=== PATIENT | male | born 1945 | race Caucasian/White ===

== ENCOUNTER 2019-07-03 08:37 | Observation (INO) | payer MEDICARE, SELFPAY ==
[2019-07-03] VITALS (9 sets, daily range): BP systolic 103–138; BP diastolic 55–95; PULSE 56–99; RESP 15–18; TEMP 36.4–36.7; O2SAT 95–100; BMI 23.5
--- NOTE | 2019-07-03 08:53 | ED_ITS ---
Entered by Claire Velasquez, acting as scribe for Alen Salazar DO HPI - Chest Pain General: Chief Complaint: Chest Pain Stated Complaint: Chest pain Time Seen by Provider: 07/03/19 08:49 Source: patient, family and RN notes reviewed Mode of arrival: ambulatory Limitations: no limitations History of Present Illness: HPI narrative: 73 yo male presents to ED with complaints of chest pain and abdominal pain. The patient said he has a sharp burning pain in chest and a ache in his abdomen. He said he is nauseated when he sits up and stands up because he gets so dizzy. He confirms shortness of breath. He denies vomiting. MD complaint: chest pain Onset (ago): hour(s) (this morning) Timing of current episode: constant Prior episodes: No Onset: during rest Pain location: substernal Severity: moderate Quality: aching and sharp Relieving factors: nothing Exacerbating factors: movement Associated symptoms: Reports abdominal pain, dyspnea and nausea; Deny fever(s), palpitations or syncope Treatment prior to arrival: none Risk Factors: Coronary artery disease risk factors: hypertension Thoracic aortic dissection risk factors: none Review of Systems Const: Denies: fever, chills, body aches, fatigue, malaise or night sweats Eyes: Denies: change in vision or blurry vision ENMT: Denies: throat pain, oral sores/lesions, dental pain, nasal discharge or nasal congestion Card: Denies: palpitations, irregular heart rhythm, edema, syncope, shortness of breath on exertion, shortness of breath when lying down or leg pain with exertion Resp: Reports: shortness of breath GI: Reports: abdominal pain and nausea : Denies: flank pain, difficulty urinating, painful urination, urinary frequency, urinary urgency, urinary incontinence or blood in urine Musc: Denies: neck pain, back pain, extremity pain, extremity swelling, joint pain or joint swelling Skin/Breast: Denies: rash, itching or redness Neuro: Reports: vertigo; Denies: headache, numbness in extremities, weakness in extremities, changes in sensation, lack of coordination, difficulty walking, frequent falls, dizziness or confusion Psych: Denies: anxiety, depression, loss of interest, visual hallucinations, auditory hallucinations, suicidal ideation or homicidal ideation Endo: Denies: excessive urination, excessive thirst, tired all the time or cold intolerance Dimas/Lymph: Denies: easy bruising, easy bleeding, petechiae, enlarged lymph nodes or tender lymph nodes PFSH ED PFSH: Statuses (acute, chronic, etc) shown below reflect problem list status as previously entered and may not be historically accurate Medical History Hypertension (Chronic) Hypothyroidism (Chronic) Surgical History H/O inguinal hernia repair (Acute) H/O shoulder surgery (Acute) History of appendectomy (Acute) History of cholecystectomy (Acute) Family History Unknown Old age Reports many family members of old age. 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 Physical Exam Const: COMMON NORMALS: no apparent distress GENERAL APPEARANCE: cooperative and comfortable ORIENTATION/CONSCIOUSNESS: Yes awake, Yes oriented to person, Yes oriented to place and Yes oriented to time HENMT: COMMON NORMALS: normocephalic, head/scalp atraumatic, hearing grossly normal bilaterally, external ears normal, EAC's normal, TM's normal bilaterally, nasal mucous membranes and turbinates normal, moist oral mucous membranes and oropharynx normal HEAD & SCALP: normocephalic and atraumatic NOSE: nasal mucous membranes and turbinates normal EXTERNAL EAR: Yes external ears normal EXTERNAL AUDITORY CANAL: EAC's normal TYMPANIC MEMBRANE: TM's normal bilaterally Eye: COMMON NORMALS: PERRL, EOMs intact bilaterally, conjunctivae normal and no scleral icterus CONJUNCTIVA: Yes conjunctivae normal PUPIL: Yes PERRL Neck/C-Spine: COMMON NORMALS: full ROM, no lymphadenopathy, supple and no JVD Lymph: LYMPHATIC: no lymphadenopathy noted and no lymphedema noted Resp: COMMON NORMALS: normal respiratory effort, no retractions, no use of accessory muscles and clear to auscultation bilaterally AUSCULTATION: clear to auscultation bilaterally Cardio: COMMON NORMALS: no JVD, regular rate, regular rhythm and no murmurs RATE: regular rate RHYTHM: regular rhythm GI: COMMON NORMALS: soft to palpation and no hepatosplenomegaly AUSCULTATION: Yes normoactive bowel sounds PALPATION: Yes soft, No tender, No guarding and Yes no hepatosplenomegaly Extremity: COMMON NORMALS: normal to inspection, normal capillary refill, no clubbing, cyanosis or edema, no calf tenderness and no pedal edema Neuro: SENSORIUM/ORIENTATION: Yes oriented to person, Yes oriented to place and Yes oriented to time Skin: COMMON NORMALS: no rashes or lesions noted GENERAL SKIN EXAM: no rashes or lesions noted Course ED course: Patient sits up he gets extremely dizzy can even hold his balance gets very nauseous as well concern he may have a posterior circulation stenosis CTA of the head ordered we will do further work-up on an inpatient basis placed on observation Vital Signs: Vital signs: Vital Signs Temperature 97.8 F 07/04/19 15:25 Pulse Rate 62 07/04/19 15:25 Respiratory Rate 16 07/04/19 15:25 Blood Pressure 124/72 07/04/19 15:25 Pulse Oximetry 96 07/04/19 15:25 MDM - Chest Pain Lab Data: Labs: Lab Results 07/03/19 07/03/19 07/03/19 Range/Units 08:54 08:54 08:54 WBC 5.2 (4.0-10.0) 10^3/ uL RBC 4.15 (4.1-5.3) 10^6/u L Hgb 14.0 (11.7-16.6) g/dL Hct 40.2 L (42.0-52.0) % MCV 96.9 H (80-94) fL MCH 33.7 (28.0-34.0) pg MCHC 34.8 (30.0-36.0) g/dL RDW 12.7 (12.1-15.1) % Plt Count 192 (130-400) 10^3/c mm MPV 9.8 (7.4-10.4) fL Neut % (Auto) 72.0 % Lymph % (Auto) 17.3 % [place] % (Auto) 9.1 % Eos % (Auto) 1.0 % Baso % (Auto) 0.4 % Neut # (Auto) 3.7 (1.8-7.7) 10^3/u L Lymph # (Auto) 0.9 (0.8-4.8) 10^3/u L [place] # (Auto) 0.5 (0.2-0.9) 10^3/u L Eos # (Auto) 0.1 (0.0-0.8) 10^3/u L Baso # (Auto) 0.0 (0.0-0.1) 10^3/u L Nucleated RBC % (a uto) 0 % Nucleated RBCs # 0.0 /100WBC ESR (0-10) mm/hr Sodium 137 (136-145) mmol/L Potassium 4.1 (3.5-5.1) mmol/L Chloride 105 (98-107) mmol/L Carbon Dioxide 22 (22-29) mmol/L Anion Gap 14.1 (5-19) BUN 24 H (8-23) mg/dL Creatinine 1.2 (0.7-1.2) mg/dL Glucose 120 H (65-115) mg/dL Estimat Average Gl ucose Hemoglobin A1c (4.0-6.0) % Calcium 9.5 (8.5-10.5) mg/dL Total Bilirubin 0.6 (0.15-1.2) mg/dL AST 19 (0-40) U/L ALT 16 (0-41) U/L Alkaline Phosphata se 96 (40-130) IU/L Troponin T Baselin e 13 (0-15) ng/mL Troponin T 120 Min [place] (0-15) ng/mL Delta Troponin T (0-10) ABS# C-Reactive Protein (0.0-4.9) mg/L Total Protein 6.8 (6.6-8.7) g/dL Albumin 4.2 (3.5-5.2) g/dL Globulin 2.6 (1.3-4.6) g/dL Triglycerides (0-150) mg/dL Cholesterol (0-200) mg/dL LDL Cholesterol, C alc (50-129) mg/dL HDL Cholesterol (60-100) mg/dL LDL/HDL Ratio (0.00-3.22) RATI O Cholesterol/HDL Ra winifred (1.0-5.00) mg/dL Lipase 16 (13-60) U/L Urine Color (Yellow) Urine Appearance (CLEAR) Urine pH (5-7) Ur Specific Gravit y (1.005-1.030) Urine Protein (Negative) Urine Glucose (UA) (Normal) Urine Ketones (Negative) Urine Occult Blood (Negative) Urine Nitrate (Negative) Urine Bilirubin (NEGATIVE) Urine Urobilinogen (Negative) mg/dL Ur Leukocyte Kelly ase (Negative) Influenza Type A A g (Negative) POC Influenza B Ag (Negative) 07/03/19 07/03/19 07/03/19 Range/Units 08:54 08:54 08:54 WBC (4.0-10.0) 10^3/ uL RBC (4.1-5.3) 10^6/u L Hgb (11.7-16.6) g/dL Hct (42.0-52.0) % MCV (80-94) fL MCH (28.0-34.0) pg MCHC (30.0-36.0) g/dL RDW (12.1-15.1) % Plt Count (130-400) 10^3/c mm MPV (7.4-10.4) fL Neut % (Auto) % Lymph % (Auto) % [place] % (Auto) % Eos % (Auto) % Baso % (Auto) % Neut # (Auto) (1.8-7.7) 10^3/u L Lymph # (Auto) (0.8-4.8) 10^3/u L [place] # (Auto) (0.2-0.9) 10^3/u L Eos # (Auto) (0.0-0.8) 10^3/u L Baso # (Auto) (0.0-0.1) 10^3/u L Nucleated RBC % (a uto) % Nucleated RBCs # /100WBC ESR 6 (0-10) mm/hr Sodium (136-145) mmol/L Potassium (3.5-5.1) mmol/L Chloride (98-107) mmol/L Carbon Dioxide (22-29) mmol/L Anion Gap (5-19) BUN (8-23) mg/dL Creatinine (0.7-1.2) mg/dL Glucose (65-115) mg/dL Estimat Average Gl ucose 114 Hemoglobin A1c 5.6 (4.0-6.0) % Calcium (8.5-10.5) mg/dL Total Bilirubin (0.15-1.2) mg/dL AST (0-40) U/L ALT (0-41) U/L Alkaline Phosphata se (40-130) IU/L Troponin T Baselin e (0-15) ng/mL Troponin T 120 Min [place] (0-15) ng/mL Delta Troponin T (0-10) ABS# C-Reactive Protein 0.3 (0.0-4.9) mg/L Total Protein (6.6-8.7) g/dL Albumin (3.5-5.2) g/dL Globulin (1.3-4.6) g/dL Triglycerides (0-150) mg/dL Cholesterol (0-200) mg/dL LDL Cholesterol, C alc (50-129) mg/dL HDL Cholesterol (60-100) mg/dL LDL/HDL Ratio (0.00-3.22) RATI O Cholesterol/HDL Ra winifred (1.0-5.00) mg/dL Lipase (13-60) U/L Urine Color (Yellow) Urine Appearance (CLEAR) Urine pH (5-7) Ur Specific Gravit y (1.005-1.030) Urine Protein (Negative) Urine Glucose (UA) (Normal) Urine Ketones (Negative) Urine Occult Blood (Negative) Urine Nitrate (Negative) Urine Bilirubin (NEGATIVE) Urine Urobilinogen (Negative) mg/dL Ur Leukocyte Kelly ase (Negative) Influenza Type A A g (Negative) POC Influenza B Ag (Negative) 07/03/19 07/03/19 07/03/19 Range/Units 08:54 09:26 09:40 WBC (4.0-10.0) 10^3/ uL RBC (4.1-5.3) 10^6/u L Hgb (11.7-16.6) g/dL Hct (42.0-52.0) % MCV (80-94) fL MCH (28.0-34.0) pg MCHC (30.0-36.0) g/dL RDW (12.1-15.1) % Plt Count (130-400) 10^3/c mm MPV (7.4-10.4) fL Neut % (Auto) % Lymph % (Auto) % [place] % (Auto) % Eos % (Auto) % Baso % (Auto) % Neut # (Auto) (1.8-7.7) 10^3/u L Lymph # (Auto) (0.8-4.8) 10^3/u L [place] # (Auto) (0.2-0.9) 10^3/u L Eos # (Auto) (0.0-0.8) 10^3/u L Baso # (Auto) (0.0-0.1) 10^3/u L Nucleated RBC % (a uto) % Nucleated RBCs # /100WBC ESR (0-10) mm/hr Sodium (136-145) mmol/L Potassium (3.5-5.1) mmol/L Chloride (98-107) mmol/L Carbon Dioxide (22-29) mmol/L Anion Gap (5-19) BUN (8-23) mg/dL Creatinine (0.7-1.2) mg/dL Glucose (65-115) mg/dL Estimat Average Gl ucose Hemoglobin A1c (4.0-6.0) % Calcium (8.5-10.5) mg/dL Total Bilirubin (0.15-1.2) mg/dL AST (0-40) U/L ALT (0-41) U/L Alkaline Phosphata se (40-130) IU/L Troponin T Baselin e (0-15) ng/mL Troponin T 120 Min [place] (0-15) ng/mL Delta Troponin T (0-10) ABS# C-Reactive Protein (0.0-4.9) mg/L Total Protein (6.6-8.7) g/dL Albumin (3.5-5.2) g/dL Globulin (1.3-4.6) g/dL Triglycerides 41 (0-150) mg/dL Cholesterol 119 (0-200) mg/dL LDL Cholesterol, C alc 65 (50-129) mg/dL HDL Cholesterol 46 L (60-100) mg/dL LDL/HDL Ratio 1.41 (0.00-3.22) RATI O Cholesterol/HDL Ra winifred 2.59 (1.0-5.00) mg/dL Lipase (13-60) U/L Urine Color Yellow (Yellow) Urine Appearance Clear (CLEAR) Urine pH 8.0 H (5-7) Ur Specific Gravit y 1.015 (1.005-1.030) Urine Protein Neg (Negative) Urine Glucose (UA) Norm (Normal) Urine Ketones 1+ H (Negative) Urine Occult Blood Neg (Negative) Urine Nitrate Negative (Negative) Urine Bilirubin Neg (NEGATIVE) Urine Urobilinogen Norm (Negative) mg/dL Ur Leukocyte Kelly ase Negative (Negative) Influenza Type A A g Negative (Negative) POC Influenza B Ag Negative (Negative) 07/03/19 Range/Units 10:52 WBC (4.0-10.0) 10^3/ uL RBC (4.1-5.3) 10^6/u L Hgb (11.7-16.6) g/dL Hct (42.0-52.0) % MCV (80-94) fL MCH (28.0-34.0) pg MCHC (30.0-36.0) g/dL RDW (12.1-15.1) % Plt Count (130-400) 10^3/c mm MPV (7.4-10.4) fL Neut % (Auto) % Lymph % (Auto) % [place] % (Auto) % Eos % (Auto) % Baso % (Auto) % Neut # (Auto) (1.8-7.7) 10^3/u L Lymph # (Auto) (0.8-4.8) 10^3/u L [place] # (Auto) (0.2-0.9) 10^3/u L Eos # (Auto) (0.0-0.8) 10^3/u L Baso # (Auto) (0.0-0.1) 10^3/u L Nucleated RBC % (a uto) % Nucleated RBCs # /100WBC ESR (0-10) mm/hr Sodium (136-145) mmol/L Potassium (3.5-5.1) mmol/L Chloride (98-107) mmol/L Carbon Dioxide (22-29) mmol/L Anion Gap (5-19) BUN (8-23) mg/dL Creatinine (0.7-1.2) mg/dL Glucose (65-115) mg/dL Estimat Average Gl ucose Hemoglobin A1c (4.0-6.0) % Calcium (8.5-10.5) mg/dL Total Bilirubin (0.15-1.2) mg/dL AST (0-40) U/L ALT (0-41) U/L Alkaline Phosphata se (40-130) IU/L Troponin T Baselin e (0-15) ng/mL Troponin T 120 Min [place] 12.28 (0-15) ng/mL Delta Troponin T -0.72 L (0-10) ABS# C-Reactive Protein (0.0-4.9) mg/L Total Protein (6.6-8.7) g/dL Albumin (3.5-5.2) g/dL Globulin (1.3-4.6) g/dL Triglycerides (0-150) mg/dL Cholesterol (0-200) mg/dL LDL Cholesterol, C alc (50-129) mg/dL HDL Cholesterol (60-100) mg/dL LDL/HDL Ratio (0.00-3.22) RATI O Cholesterol/HDL Ra win[place] (1.0-5.00) mg/dL Lipase (13-60) U/L Urine Color (Yellow) Urine Appearance (CLEAR) Urine pH (5-7) Ur Specific Gravit y (1.005-1.030) Urine Protein (Negative) Urine Glucose (UA) (Normal) Urine Ketones (Negative) Urine Occult Blood (Negative) Urine Nitrate (Negative) Urine Bilirubin (NEGATIVE) Urine Urobilinogen (Negative) mg/dL Ur Leukocyte Kelly ase (Negative) Influenza Type A A g (Negative) POC Influenza B Ag (Negative) Imaging Data^: CXR: Radiologist's impression: [place] [address] XRay Report Signed Patient: Po Sánchez #: [id number] : 6Acct#:[id number] Age/Sex: 73 / MADM Date: 07/03/19 Loc: ERRoom/Bed: Attending Dr: Ordering Provider/Ordering MD: Alen Salazar DO Date of Service: 07/03/19 Procedure(s): XR chest 1V portable [id number] Accession Number(s): [id number] Report Number: [id number] WS: [id number] PORTABLE CHEST HISTORY: chest pain COMPARISON: 09/08/2012 Lungs are clear and well expanded. No pleural effusion or pneumothorax. Cardiac size: Normal. Mediastinum/Aorta: Normal mediastinum. No osseous abnormality seen. XR/XR chest 1V portable [id number] IMPRESSION: Unremarkable portable chest. Dictated By:Richelle Luis DO Signed By:Richelle Luis DOSigned Date/Time:07/03/19 1000 DD/ Other CT: Radiologist's impression: [facility] [address] [place] [address] CT Scan Report Signed Patient: Po Sánchez #: [id number] : 6Acct#:[id number] Age/Sex: 73 / MADM Date: 07/03/19 Loc: [facility]/Bed: [facility] [place] Attending Dr: Scooter Funes MD Ordering Provider/Ordering MD: Alen Salazar DO Date of Service: 07/03/19 Procedure(s): CT angio headneck* [id number] Accession Number(s): [id number] Report Number: [id number] PROCEDURE INFORMATION: Exam: CT Angiography Head With Contrast Exam date and time: 07/03/2019 12:29 PM Age: 73 years old Clinical indication: Dizziness and giddiness; Patient HX: Onset of dizziness with vomiting today. ; Additional info: Tia/cva TECHNIQUE: Imaging protocol: Computed tomography angiography of the head with intravenous contrast. 3D rendering: MIP and/or 3D reconstructed images were created by the technologist. Total DLP: 2269.87 mGy-cm Radiation optimization: All CT scans at this facility use at least one of these dose optimization techniques: automated exposure control; mA and/or kV adjustment per patient size (includes targeted exams where dose is matched to clinical indication); or iterative reconstruction. Contrast material: VISI 320; Contrast volume: 95 ml; Contrast route: 20G; COMPARISON: CT head wo con* [id number] 07/03/2019 12:52 PM FINDINGS: Right internal carotid artery: Unremarkable. Intracranial segment is patent with no significant stenosis. No aneurysm. 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 Right middle cerebral artery: Unremarkable. No occlusion or significant stenosis. No aneurysm. Right posterior cerebral artery: Unremarkable. No occlusion or significant stenosis. No aneurysm. Right vertebral artery: Unremarkable. No occlusion or significant stenosis. No aneurysm. Left internal carotid artery: Unremarkable. Intracranial segment is patent with no significant stenosis. No aneurysm. Left anterior cerebral artery: Unremarkable. No occlusion or significant stenosis. No aneurysm. Left middle cerebral artery: Unremarkable. No occlusion or significant stenosis. No aneurysm. Left posterior cerebral artery: Unremarkable. No occlusion or significant stenosis. No aneurysm. Left vertebral artery: Unremarkable. No occlusion or significant stenosis. No aneurysm. Basilar artery: Unremarkable. No occlusion or significant stenosis. No aneurysm. IMPRESSION: No acute abnormality. PROCEDURE INFORMATION: Exam: CT Angiography Neck With Contrast Exam date and time: 07/03/2019 12:29 PM Age: 73 years old Clinical indication: Dizziness and giddiness; Patient HX: Onset of dizziness with vomiting today. ; Additional info: Tia/cva TECHNIQUE: Imaging protocol: Computed tomography angiography of the neck with intravenous contrast. 3D rendering: MIP and/or 3D reconstructed images were created by the technologist. Total DLP: 2269.87 mGy-cm Radiation optimization: All CT scans at this facility use at least one of these dose optimization techniques: automated exposure control; mA and/or kV adjustment per patient size (includes targeted exams where dose is matched to clinical indication); or iterative reconstruction. Contrast material: VISI 320; Contrast volume: 95 ml; Contrast route: 20G; COMPARISON: CT head wo con* [id number] 07/03/2019 12:52 PM FINDINGS: VASCULATURE: Right common carotid artery: Unremarkable. No stenosis. No dissection or occlusion. Right internal carotid artery: Unremarkable extracranial segment. No stenosis. No dissection or occlusion. Right external carotid artery: Unremarkable. No occlusion or stenosis of the origin. Right vertebral artery: Unremarkable. No stenosis. No dissection or occlusion. Left common carotid artery: Unremarkable. No stenosis. No dissection or occlusion. Left internal carotid artery: Unremarkable extracranial segment. No stenosis. No dissection or occlusion. Left external carotid artery: Unremarkable. No occlusion or stenosis of the origin. Left vertebral artery: Unremarkable. No stenosis. No dissection or occlusion. NECK: Bones/joints: Moderate degenerative changes of the cervical spine are present. Soft tissues: Normal. No significant soft tissue swelling. CT/CT angio headneck* [id number] IMPRESSION: No acute abnormality. COMMENT: Reference per NASCET criteria for degree of stenosis: Mild: less than 50% stenosis. Moderate: 50-69% stenosis. Severe: 70-94% stenosis. Near occlusion: 95-99% stenosis. Radiation Dose CTDIVOL = (mGy): DLP = 2269.87~2269.87 (mGy-cm) Dictated By:Hang Wallis MD Signed By:Hang Wallis MDSigned Date/Time:07/03/19 1333 DD/ CT Head: Radiologist's impression: [place] [address] CT Scan Report Signed Patient: Po Sánchez #: [id number] : 6Acct#:[id number] Age/Sex: 73 / MADM Date: 07/03/19 Loc: ERRoom/Bed: Attending Dr: Ordering Provider/Ordering MD: Alen Salazar DO Date of Service: 07/03/19 Procedure(s): CT head wo con* [id number] Accession Number(s): [id number] Report Number: [id number] PROCEDURE INFORMATION: Exam: CT Head Without Contrast Exam date and time: 07/03/2019 12:29 PM Age: 73 years old Clinical indication: Patient HX: Onset of dizziness with vomiting today. TECHNIQUE: Imaging protocol: Computed tomography of the head without contrast. Total DLP: 856.99 mGy-cm Radiation optimization: All CT scans at this facility use at least one of these dose optimization techniques: automated exposure control; mA and/or kV adjustment per patient size (includes targeted exams where dose is matched to clinical indication); or iterative reconstruction. COMPARISON: No relevant prior studies available. FINDINGS: Brain: There is no acute intracranial hemorrhage, cerebral edema, or midline shift. Chronic microvascular ischemic changes are seen in the periventricular white matter. Age-related cerebral and cerebellar volume loss is present. Ventricles: No hydrocephalus. Bones/joints: No acute fracture. Sinuses: There is no acute sinusitis. Mastoid air cells: The mastoid air cells are clear. Orbits: The included orbital structures are unremarkable. Soft tissues: Unremarkable. CT/CT head wo con* [id number] IMPRESSION: 1. No acute intracranial abnormality. 2. Atrophy and chronic deep white matter ischemic change. 3. [place] Stroke Program Early CT Score (ASPECTS) = 10 Radiation Dose CTDIVOL = (mGy): DLP = 856.99 (mGy-cm) Dictated By:Hang Wallis MD Signed By:Hang Wallis MDSigned Date/Time:07/03/19 1315 DD/ Discharge Plan Discharge Patient Disposition: Admitted As Inpatient Admit Provider: Scooter Funes Clinical Impression: TIA (transient ischemic attack), Hypothyroidism, Hypertension Condition: Stable Discharge Orders: Discharge Order (Routine); Ordered 07/04/19 Ordered By: Scooter Funes Referrals: Melissa Lowery MD [Physician] - 07/17/19 2:30 pm (As needed) Cipriano Barrera MD [Primary Care Provider] - 4-7 days (PLEASE CALL FOR APPOINTMENT WITH DR BARRERA) Discharge Diet: Cardiac Discharge Activity: Increase activity as tolerated Patient Instructions: Benign Positional Vertigo, Meclizine (By mouth), Atorvastatin (By mouth), Vertigo (DC) Additional Instructions: Avoid work overhead, or places where repositioning her head may trigger vertigo until symptoms are consistently resolved. Avoid working in elevated locations to avoid risk of falling in case you suffer an episode of vertigo. Interventions: ED Discharge Assessment Last Done: 07/03/19 13:41 Discharge Date/Time: 07/03/19 14:00 Coding Level of Care Code ED Speech Therapy Assistant for Chg Fwd Exam Problem Focused The documentation recorded by the Ron kilgore Valerie R, accurately reflects the service I personally performed and the decisions made by Martin zamora Curtis L, DO Jul 03, 2019 08:37
--- NOTE | 2019-07-03 08:58 | ECG_ITS ---
Measurements Intervals [place] Rate: 54 P: 62 MT: 197 QRS: 46 QRSD: 88 T: 66 QT: 419 QTc: 398 SINUS BRADYCARDIA No previous ECG available for comparison Electronically Signed On 07-03-2019 16:31:36 LAST PULLER by Rodrick Rasheed M.D. [email or web address]
[2019-07-03 09:07] LABS: Basophils % 0.4 %; Eosinophils # 0.1 10^3/uL (0.0-0.8); Hematocrit 40.2 % (42.0-52.0); Lymphocytes # 0.9 10^3/uL (0.8-4.8); Lymphocytes % 17.3 %; Mean Corpuscular HGB Conc 34.8 g/dL (30.0-36.0); Mean Corpuscular Hemoglobin 33.7 pg (28.0-34.0); Mean Corpuscular Volume 96.9 fL (80-94); Mean Platelet Volume 9.8 fL (7.4-10.4); Monocytes # 0.5 10^3/uL (0.2-0.9); Monocytes % 9.1 %; Neutrophils # 3.7 10^3/uL (1.8-7.7); Nucleated Red Blood Cells % 0 %; Platelet Count 192 10^3/cmm (130-400); Red Blood Count 4.15 10^6/uL (4.1-5.3); Red Cell Distribution Width 12.7 % (12.1-15.1); White Blood Count 5.2 10^3/uL (4.0-10.0)
--- NOTE | 2019-07-03 09:13 | XR_ITS ---
WS: [id number] PORTABLE CHEST HISTORY: chest pain COMPARISON: 09/08/2012 Lungs are clear and well expanded. No pleural effusion or pneumothorax. Cardiac size: Normal. Mediastinum/Aorta: Normal mediastinum. No osseous abnormality seen. XR/XR chest 1V portable [id number] IMPRESSION: Unremarkable portable chest.
[2019-07-03 09:16] LABS: Alanine Aminotransferase 16 U/L (0-41); Albumin Level 4.2 g/dL (3.5-5.2); Alkaline Phosphatase 96 IU/L (40-130); Anion Gap 14.1 (5-19); Aspartate Amino Transferase 19 U/L (0-40); Blood Urea Nitrogen 24 mg/dL (8-23); Calcium 9.5 mg/dL (8.5-10.5); Carbon Dioxide 22 mmol/L (22-29); Chloride 105 mmol/L (98-107); Globulin 2.6 g/dL (1.3-4.6); Glucose 120 mg/dL (65-115); Lipase 16 U/L (13-60); Potassium 4.1 mmol/L (3.5-5.1); Sodium 137 mmol/L (136-145); Total Bilirubin 0.6 mg/dL (0.15-1.2); Total Protein 6.8 g/dL (6.6-8.7)
[2019-07-03] MEDS: ondansetron 2 mg/ML SDV 2 mL 4 MG IVP ×2 (09:22→15:01)
[2019-07-03] MEDS: sodium chloride 0.9% 1,000 ML 999 ML IV ×2 (09:22→12:02)
--- NOTE | 2019-07-03 09:26 | PC.NURSE ---
portable xray at bedside
[2019-07-03 09:49] LABS: Add Urine Microscopic? NO
[2019-07-03 09:55] LABS: Influenza A by IFA Negative (Negative); Influenza B by IFA Negative (Negative)
[2019-07-03 09:57] LABS: Bilirubin Urine Neg (NEGATIVE); Blood Urine Neg (Negative); Glucose Urine UA Norm (Normal); Ketones Urine 1+ (Negative); Leukocyte Esterase Urine Negative (Negative); Nitrate Urine Negative (Negative); Protein Urine Neg (Negative); Specific Gravity, Urine 1.015 (1.005-1.030); Urine Appearance Clear (CLEAR); Urine Color Yellow (Yellow); Urobilinogen Urine Norm (Negative)
--- NOTE | 2019-07-03 09:59 | ECG_ITS ---
Measurements Intervals [place] Rate: 53 P: 63 NE: 205 QRS: 47 QRSD: 85 T: 55 QT: 433 QTc: 408 SINUS BRADYCARDIA No previous ECG available for comparison Electronically Signed On 07-03-2019 16:32:17 CLERICAL SUPPORT SPECIALIST by Rodrick Rasheed M.D. [email or web address]
--- NOTE | 2019-07-03 10:14 | PM.CONSULT ---
Providers/Reason For Consult Consulting Physican/Specialty*: Indigo Reason for Consult*: Vertigo and arm weakness Attending Physician: Scooter Funes Primary Care Provider: Cipriano Mehta MD History of Present Illness History of Present Illness Consultation provided 07/03/2019 at [id number] hrs. 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 He came to the emergency department complaining of chest pain and abdominal pain and nausea. After some discussion in triage it became apparent that his main concern was vertigo. He was severely nauseated and could not move without triggering severe vertigo. He was evaluated by Dr. Funes, and during neurologic exam he was not moving his upper extremities against gravity and appeared profoundly weak. During my exam the patient is complaining of severe vertigo and he is reluctant to move about in the bed. He is severely nauseated when he turns his head to the right or the left. He feels unsteady when he walks and has been up to the bathroom but he was severely vertiginous.. He denies weakness in his limbs usually. He had not noticed weakness in his limbs today. His vertigo is better if he holds absolutely still. Yesterday he was complaining of intense pain in the back of his neck on the right side. He denied diplopia. No visual loss. He has a long history of high-pitched tinnitus which she describes as pulsatile. No hearing loss. He told Dr. Funes that when he lifted his arms it increase the pain in the back of his neck. Review of Systems General: Reports: 10 or more systems reviewed and unremarkable except in HPI and below Const: Reports: fatigue; Denies: fever or chills Eyes: Reports: blurry vision; Denies: change in vision, photophobia or other (No diplopia) ENMT: Denies: painful swallowing Card: Reports: chest pain; Denies: palpitations, irregular heart rhythm, edema, syncope or pre-syncope Resp: Denies: shortness of breath GI: Reports: nausea; Denies: abdominal pain, vomiting, difficulty swallowing or change in bowel habits : Denies: flank pain or difficulty urinating Musc: Reports: neck pain Neuro: Reports: weakness in extremities, lack of coordination, difficulty walking and vertigo; Denies: headache, numbness in extremities, changes in sensation, confusion or slurred speech Psych: Reports: anxiety Endo: Denies: excessive urination Dimas/Lymph: Denies: easy bruising Meds/Allergies Home Medications and Allergies Home Medications Medication Instructions Recorded Confirmed Type aspirin [Aspir-81] 81 mg PO DAILY 07/03/19 07/03/19 History levothyroxine 50 mcg PO DAILY 07/03/19 07/03/19 History naproxen sodium [Aleve] 440 mg PO DAILY PRN 07/03/19 07/03/19 History Allergies Allergy/AdvReac Type Severity Reaction Status Date / Time gluten Allergy Unknown Unknown Verified 07/03/19 09:19 Current Medications Current Medications Generic Name Dose Route Start Last Admin Trade Name Freq PRN Reason Stop Dose Admin Aspirin 162 mg 07/03/19 15:47 07/04/19 09:10 Aspirin Chewable PO 162 mg DAILY DEE DEE Administration Heparin Sodium (Beef Lung) 5,000 unit 07/03/19 15:47 07/04/19 09:11 Heparin SUBCUT 5,000 unit Q8H DEE DEE Administration Potassium Chloride/Sodium Chloride 20 meq in 1,000 mls @ 125 mls/hr 07/03/19 12:00 07/03/19 20:01 Sodium Chlor 0.9% + Kcl 20 Meq IV 125 mls/hr .Q8H DEE DEE Administration Sodium Chloride 1,000 mls @ 100 mls/hr 07/03/19 14:25 07/04/19 09:09 Sodium Chloride 0.9% IV 100 mls/hr .Q10H DEE DEE Administration Levothyroxine Sodium 50 mcg 07/04/19 09:00 07/04/19 09:10 Synthroid PO 50 mcg DAILY DEE DEE Administration Ondansetron HCl 4 mg 07/03/19 14:25 07/03/19 15:01 Zofran IVP 4 mg Q6H PRN Administration NAUSEA AND VOMITING Pantoprazole Sodium 40 mg 07/03/19 19:55 07/04/19 09:10 Protonix PO 40 mg DAILY DEE DEE Administration Prednisone 60 mg 07/03/19 18:20 07/04/19 09:10 Prednisone PO 60 mg DAILY DEE DEE Administration PFSH Acute PFSH: Statuses (acute, chronic, etc) shown below reflect problem list status as previously entered and may not be historically accurate Medical History Hypertension (Chronic) Hypothyroidism (Chronic) Surgical History H/O inguinal hernia repair (Acute) H/O shoulder surgery (Acute) History of appendectomy (Acute) History of cholecystectomy (Acute) Family History Unknown Old age Reports many family members of old age. 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 He has a healthy appearance overall and appears fit. MENTAL STATUS: [Orientation was full to 10 of 10 questions of orientation]. [Speech was fluent without word hesitation]. [No difficulty following a complex command]. [The affect was euthymic]. CRANIAL NERVES: Extraocular movements were full. Both slow pursuit and saccadic eye movements were normal. After turning his head to the left he had a couple of beats of nystagmus on left gaze and complained of vertigo with nausea. On turning his head to the right he complained of subjective vertigo but there was no nystagmus. PERRLA. Face was symmetric at rest and with grimace. [Facial sensation was intact in all three distributions of the fifth cranial nerve bilaterally to touch]. [The masseters were strong bilaterally]. Tongue and palate were midline at rest and with protrusion of the tongue and elevation of the palate. Shoulders were symmetric at rest and with shoulder shrug. MOTOR: There was no drift of the extended arms. Fine movements in the hands were rapid and symmetric. Toe tapping was rapid and symmetric. Power was 5/5 in all the muscles of all four extremities tested individually he gave excellent effort although he was reluctant to move. Bulk and tone were normal. There was no atrophy. SENSATION: Pin and vibration were intact distally in the 4 extremities COORDINATION: [Sdngyh-[id number]-vofafg, daie-dwgd-wyav and rapid alternating movements were performed smoothly without evidence of tremor or ataxia.] DEEP TENDON REFLEXES: [2/4 throughout.] [Toes downgoing bilaterally.] GAIT: Not tested. The patient was nauseated and vertiginous. HEENT: Normocephalic without dysmorphic features. Conjunctivae were not injected and sclerae were nonicteric. Temporal artery pulses were strong bilaterally and the arteries were nontender. NECK: Carotid upstroke was strong bilaterally without bruits. The thyroid was not enlarged and there were no palpable lymph nodes. CHEST: Clear to auscultation. CARDIOVASCULAR: The heart sounds were normal without murmur or gallop. Regular rate and rhythm. Peripheral pulses were 2+ throughout in the distal extremities. EXTREMITIES: There was no edema or cyanosis. The skin was unremarkable. The spine exhibited normal thoracic kyphosis and normal lumbar lordosis without deformities. A&P Assessment and plan (1) Vertigo: Healthy 73-year-old man with no significant risk factors for stroke, normal CT of the head and normal CT angiogram presents with isolated vertigo. His vertigo is markedly positional. He does not have any focal neurologic findings and has full eye movements. He has a little bit of ptosis which I failed to mention above that I think it senile ptosis. I will re-review it on exam in the morning and give him a more vigorous exam, get him out of bed and possibly do a Hallpike Pricila maneuver in the morning as he was too nauseated for that this evening. Consider a burst of steroids for labyrinthitis. Physical therapy as soon as he will tolerate it and benzodiazepines for symptom control. Thanks for asking me to see him. This consultation was performed 07/03/2019 and dictated the following morning Status: Acute Code(s): R42 - Dizziness and giddiness Coding Level of Care Code Acute Manager Safe for Дмитрий Gleason Diagnoses Vertigo R42
[2019-07-03 10:18] LABS: Troponin(5th) Baseline 13 ng/mL (0-15)
[2019-07-03] MEDS: metoclopramide 5 mg/mL SDV 2 mL 10 MG IVP (10:31)
[2019-07-03 11:14] LABS: Troponin 5 2HR 12.28 ng/mL (0-15)
--- NOTE | 2019-07-03 11:14 | PC.NURSE ---
pt having apneic episodes while sleeping. Nurse placed 2L O2 on pt via nasal cannula
[2019-07-03 11:25] LABS: Troponin 5 2HR Delta -0.72 ABS# (0-10)
--- NOTE | 2019-07-03 11:59 | ECG_ITS ---
Measurements Intervals [place] Rate: 75 P: 57 DC: 207 QRS: 44 QRSD: 84 T: 55 QT: 391 QTc: 439 SINUS RHYTHM No previous ECG available for comparison Electronically Signed On 07-03-2019 16:38:36 [facility] by Rodrick Rasheed M.D. [email or web address]
--- NOTE | 2019-07-03 12:22 | CTR_ITS ---
PROCEDURE INFORMATION: Exam: CT Angiography Head With Contrast Exam date and time: 07/03/2019 12:29 PM Age: 73 years old Clinical indication: Dizziness and giddiness; Patient HX: Onset of dizziness with vomiting today. ; Additional info: Tia/cva TECHNIQUE: Imaging protocol: Computed tomography angiography of the head with intravenous contrast. 3D rendering: MIP and/or 3D reconstructed images were created by the technologist. Total DLP: 2269.87 mGy-cm Radiation optimization: All CT scans at this facility use at least one of these dose optimization techniques: automated exposure control; mA and/or kV adjustment per patient size (includes targeted exams where dose is matched to clinical indication); or iterative reconstruction. Contrast material: VISI 320; Contrast volume: 95 ml; Contrast route: 20G; COMPARISON: CT head wo con* [id number] 07/03/2019 12:52 PM FINDINGS: Right internal carotid artery: Unremarkable. Intracranial segment is patent with no significant stenosis. No aneurysm. 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 Right middle cerebral artery: Unremarkable. No occlusion or significant stenosis. No aneurysm. Right posterior cerebral artery: Unremarkable. No occlusion or significant stenosis. No aneurysm. Right vertebral artery: Unremarkable. No occlusion or significant stenosis. No aneurysm. Left internal carotid artery: Unremarkable. Intracranial segment is patent with no significant stenosis. No aneurysm. Left anterior cerebral artery: Unremarkable. No occlusion or significant stenosis. No aneurysm. Left middle cerebral artery: Unremarkable. No occlusion or significant stenosis. No aneurysm. Left posterior cerebral artery: Unremarkable. No occlusion or significant stenosis. No aneurysm. Left vertebral artery: Unremarkable. No occlusion or significant stenosis. No aneurysm. Basilar artery: Unremarkable. No occlusion or significant stenosis. No aneurysm. IMPRESSION: No acute abnormality. PROCEDURE INFORMATION: Exam: CT Angiography Neck With Contrast Exam date and time: 07/03/2019 12:29 PM Age: 73 years old Clinical indication: Dizziness and giddiness; Patient HX: Onset of dizziness with vomiting today. ; Additional info: Tia/cva TECHNIQUE: Imaging protocol: Computed tomography angiography of the neck with intravenous contrast. 3D rendering: MIP and/or 3D reconstructed images were created by the technologist. Total DLP: 2269.87 mGy-cm Radiation optimization: All CT scans at this facility use at least one of these dose optimization techniques: automated exposure control; mA and/or kV adjustment per patient size (includes targeted exams where dose is matched to clinical indication); or iterative reconstruction. Contrast material: VISI 320; Contrast volume: 95 ml; Contrast route: 20G; COMPARISON: CT head wo con* [id number] 07/03/2019 12:52 PM FINDINGS: VASCULATURE: Right common carotid artery: Unremarkable. No stenosis. No dissection or occlusion. Right internal carotid artery: Unremarkable extracranial segment. No stenosis. No dissection or occlusion. Right external carotid artery: Unremarkable. No occlusion or stenosis of the origin. Right vertebral artery: Unremarkable. No stenosis. No dissection or occlusion. Left common carotid artery: Unremarkable. No stenosis. No dissection or occlusion. Left internal carotid artery: Unremarkable extracranial segment. No stenosis. No dissection or occlusion. Left external carotid artery: Unremarkable. No occlusion or stenosis of the origin. Left vertebral artery: Unremarkable. No stenosis. No dissection or occlusion. NECK: Bones/joints: Moderate degenerative changes of the cervical spine are present. Soft tissues: Normal. No significant soft tissue swelling. CT/CT angio headne* [id number] IMPRESSION: No acute abnormality. COMMENT: Reference per NASCET criteria for degree of stenosis: Mild: less than 50% stenosis. Moderate: 50-69% stenosis. Severe: 70-94% stenosis. Near occlusion: 95-99% stenosis. Radiation Dose CTDIVOL = (mGy): DLP = 2269.87~2269.87 (mGy-cm)
--- NOTE | 2019-07-03 12:22 | CTR_ITS ---
PROCEDURE INFORMATION: Exam: CT Head Without Contrast Exam date and time: 07/03/2019 12:29 PM Age: 73 years old Clinical indication: Patient HX: Onset of dizziness with vomiting today. TECHNIQUE: Imaging protocol: Computed tomography of the head without contrast. Total DLP: 856.99 mGy-cm Radiation optimization: All CT scans at this facility use at least one of these dose optimization techniques: automated exposure control; mA and/or kV adjustment per patient size (includes targeted exams where dose is matched to clinical indication); or iterative reconstruction. COMPARISON: No relevant prior studies available. FINDINGS: Brain: There is no acute intracranial hemorrhage, cerebral edema, or midline shift. Chronic microvascular ischemic changes are seen in the periventricular white matter. Age-related cerebral and cerebellar volume loss is present. Ventricles: No hydrocephalus. Bones/joints: No acute fracture. Sinuses: There is no acute sinusitis. Mastoid air cells: The mastoid air cells are clear. Orbits: The included orbital structures are unremarkable. Soft tissues: Unremarkable. CT/CT head wo con* [id number] IMPRESSION: 1. No acute intracranial abnormality. 2. Atrophy and chronic deep white matter ischemic change. 3. [facility] Stroke Program Early CT Score (ASPECTS) = 10 Radiation Dose CTDIVOL = (mGy): DLP = 856.99 (mGy-cm)
[2019-07-03] MEDS: iodixanol 320 mg/mL 100mL Btl IV (12:55)
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
[2019-07-03 14:15] LABS: C Reactive Protein 0.3 mg/L (0.0-4.9)
[2019-07-03 14:55] LABS: Erythrocyte Sedimentation Rate 6 mm/hr (0-10)
[2019-07-03] MEDS: sodium chlor 0.9% + KCl 20 mEq 20 MEQ/1,000 ML BAG 125 MEQ IV ×2 (15:00→20:01)
--- NOTE | 2019-07-03 15:59 | ECG_ITS ---
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 [email or web address]
[2019-07-03 16:15] LABS: Troponin 5 6HR 12.97 ng/L (0-15)
[2019-07-03 16:29] LABS: Troponin 5 6HR Delta -0.03 ng/L (0-12)
[2019-07-03 18:11] LABS: Estmated Average Glucose 114; Hemoglobin A1C 5.6 % (4.0-6.0)
[2019-07-03] MEDS: predniSONE 20 mg Tablet 60 MG PO (18:40)
[2019-07-03] MEDS: heparin 5,000 unit/mL INJ 1 mL 5000 UNIT SUBCUT (18:40)
[2019-07-03] MEDS: aspirin 81 mg Chew Tablet 162 MG PO (18:40)
[2019-07-03 18:51] LABS: Chol HDL Ratio 2.59 mg/dL (1.0-5.00); Cholesterol 119 mg/dL (0-200); HDL Cholesterol 46 mg/dL (60-100); LDL Cholesterol Calculated 65 mg/dL (50-129); LDL HDL Ratio 1.41 RATIO (0.00-3.22); Triglycerides 41 mg/dL (0-150)
[2019-07-03] MEDS: pantoprazole DR 40 mg Tablet PO (20:01)
[2019-07-03] MEDS: sodium chloride 0.9% 1,000 ML 100 ML IV (23:10)
[2019-07-04] VITALS (7 sets, daily range): BP systolic 104–166; BP diastolic 58–74; PULSE 60–74; RESP 16–19; TEMP 36.6–37.1; O2SAT 94–98
[2019-07-04] MEDS: heparin 5,000 unit/mL INJ 1 mL 5000 UNIT SUBCUT ×2 (03:23→09:11)
[2019-07-04 04:59] LABS: Hematocrit 40.9 % (42.0-52.0); Hemoglobin 13.7 g/dL (11.7-16.6); Lymphocytes # 0.4 10^3/uL (0.8-4.8); Lymphocytes % 8.5 %; Mean Corpuscular HGB Conc 33.5 g/dL (30.0-36.0); Mean Corpuscular Hemoglobin 34.7 pg (28.0-34.0); Mean Corpuscular Volume 103.5 fL (80-94); Mean Platelet Volume 10.1 fL (7.4-10.4); Monocytes # 0.1 10^3/uL (0.2-0.9); Monocytes % 1.4 %; Neutrophils # 3.9 10^3/uL (1.8-7.7); Neutrophils % 89.9 %; Nucleated Red Blood Cells % 0 %; Platelet Count 174 10^3/cmm (130-400); Red Blood Count 3.95 10^6/uL (4.1-5.3); Red Cell Distribution Width 13.1 % (12.1-15.1); White Blood Count 4.3 10^3/uL (4.0-10.0)
[2019-07-04 05:22] LABS: Anion Gap 13.4 (5-19); Blood Urea Nitrogen 18 mg/dL (8-23); Calcium 8.5 mg/dL (8.5-10.5); Carbon Dioxide 20 mmol/L (22-29); Chloride 108 mmol/L (98-107); Glucose 151 mg/dL (65-115); Osmolality Calculated 283 mOsm/kg (285-295); Potassium 4.4 mmol/L (3.5-5.1); Sodium 137 mmol/L (136-145)
[2019-07-04] MEDS: sodium chloride 0.9% 1,000 ML 100 ML IV (09:09)
[2019-07-04] MEDS: aspirin 81 mg Chew Tablet 162 MG PO (09:10)
[2019-07-04] MEDS: levothyroxine 50 mcg Tablet PO (09:10)
[2019-07-04] MEDS: pantoprazole DR 40 mg Tablet PO (09:10)
[2019-07-04] MEDS: predniSONE 20 mg Tablet 60 MG PO (09:10)
--- NOTE | 2019-07-04 11:01 | PM.PN ---
Subjective Subjective: Interval history: He is feeling fine this morning. His vertigo has completely resolved when he woke up this morning. He has been up to the bathroom and up walking in the [place] with physical therapy. He learned some exercises to do at home and feels that he has full comprehension of those. He would like to go home as soon as possible to take care of his dog. Medications: Reviewed: Yes Vitals/I&O/Wt Last Vital Signs Temp 97.8 F 07/04/19 08:00 Pulse 74 07/04/19 08:00 Resp 16 07/04/19 08:00 BP 166/67 07/04/19 08:00 Pulse Ox 94 07/04/19 08:00 07/03/19 07/04/19 07/04/19 22:59 06:59 14:59 Intake Total 987.083 / 2987.083 160 / 3147.083 1238.333 / 1238.333 Output Total 300 / 300 750 / 1050 Balance 687.083 / 2687.083 -590 / 2097.083 1238.333 / 1238.333 Weight last 48 hrs Weight 150 lb Physical Exam Narrative: EXAM NARRATIVE: GENERAL: The patient was well-nourished with a healthy appearance and appropriately groomed. MENTAL STATUS: Orientation was full to 10 of 10 questions of orientation. Speech was fluent without word hesitation. No difficulty following a complex command. The affect was euthymic. CRANIAL NERVES: Visual acuity was intact to reading small print. Visual madera were full to confrontation, direct and consensual. Extraocular movements were full without nystagmus. PERRLA. Face was symmetric at rest and with grimace. Facial sensation was intact in all three distributions of the fifth cranial nerve bilaterally to touch. Tongue and palate were midline at rest and with protrusion of the tongue and elevation of the palate. Shoulders were symmetric at rest and with shoulder shrug. MOTOR: There was no drift of the extended arms. Fine movements in the hands were rapid and symmetric. Toe tapping was rapid and symmetric. Power was 5/5 in all the muscles of all four extremities tested individually. Bulk and tone were normal. There was no atrophy. No fasciculations were seen. SENSATION: Pin, touch and vibration were intact in the four extremities distally. . COORDINATION: Btlcwl-wfre-rjulgm, jvoq-icrx-vshq performed smoothly without ataxia. Tandem gait was a little clumsy but improved with practice. Stance stable with the eyes open or closed. DEEP TENDON REFLEXES: 2/4 throughout. GAIT: Normal without midline instability. CARDIOVASCULAR: The heart sounds were normal without murmur or gallop. Regular rate and rhythm. Data : 07/04/19 04:30 07/04/19 04:30 A&P Assessment and plan (1) Benign positional vertigo: This could have been severe labyrinthitis with rapid recovery but benign positional vertigo also likely. He has had complete resolution of symptoms and can be discharged. I explained to the patient that most likely this came from his middle ear and I went over that in detail. I recommended that if his symptoms recur he should either come to my office or call my office for rapid evaluation and canalith repositioning maneuver. I encouraged him to do his exercises at home in order to prevent symptoms. I took time to answer his questions. I talked with Dr. Funes on his behalf to expedite his discharge. Thanks for asking me to see this patient. Status: Acute Qualifiers: Laterality: left Qualified Code(s): H81.12 - Benign paroxysmal vertigo, left ear Code(s): H81.10 - Benign paroxysmal vertigo, unspecified ear Attestations Medical Necessity Statement*: Severe vertigo with concern for stroke or progressive inflammatory disorder Coding Level of Care Code Acute Bottom Sprayer for [facility] Diagnoses Benign positional vertigo H81.12 Laterality: left
--- NOTE | 2019-07-04 11:51 | PC.OT ---
OT SCREEN/EVALUATION COMPLETED. PATIENT SHOWS NO DEFICITS IN ADLS; NO FURTHER SKILLED OT NEEDED AT THIS TIME.
--- NOTE | 2019-07-04 12:18 | PC.CHAP ---
Pastoral Care Encounter/Spiritual Assessment Type of Contact [] Declined administrative services director visit [] Patient/Family/Request visit [] Outpatient visit [] Follow-up visit [] Physician referral [] Code/Alert [x] Routine visit [] Staff referral [] Actively dying [] Patient sleeping [] Family support [] [] Out of room [] Palliative care [] [] Receiving care in room [] Pre-surgical visit [] Trauma [] Long length of stay [] ICU visit [] Other: Relational/Emotional Strength [x] Patient feels connected with others/family/visitors/staff [] Distress [] Loneliness/isolation [] Abandonment Spirituality of Patient [x] Person of Maddie [x] Attends Zoroastrian of their Maddie [x] Believes in Prayer [x] Reads Bible or Confucianist materials [] There are Spiritual issues to be addressed Tint Layer Interventions [x] Prayer [x] Active listening [x] Non-anxious presence [x] Spiritual/emotional support [] Crisis/trauma care [] Spiritual counseling [] Bereavement support [] Provided bereavement packet [] Provided Bible/devotional materials [] Provided toy/stuffed animal, coloring book to patient or family member [] Provided Communion [] Anointing/[place] [] Salvation [x] Completed spiritual assessment [] Other: Impact on Illness or Injury [] Angry [] Fearful [] Anxious [] Often cries [] Exhaustion [] Unable to work [] Unable to attend orthodox [] Unable to walk/stand [] Unable to read [] Unable to drive [] Unable to eat/drink [] Unable to sleep [] Unable to be with family [] Patient intubated [x] Other: Pt fully mobile. Retired Summary Pt's spouse was present. They are waiting for discharge orders as pt to be released this afternoon. Pt was in very good mood. He and his spouse were very pleasant to visit with and are people of maddie. Pt stated he feels no negative concerns to worry about once discharged. Tint Layerjulian Luis Time spent with patient 18 minutes
--- NOTE | 2019-07-04 15:20 | PC.NURSE ---
Discharge instructions explained to patient. Iv taken out clean and intact. Patient was transported via wheelchair to vehicle with no complications.
--- NOTE | 2019-07-04 19:29 | P.DS_ITS ---
Discharge Providers Date of Admission: 07/03/19 12:26 Date of Discharge: Date of Discharge: July 04, 2019 Attending Provider at Admission: Scooter Funes Attending Provider at Discharge: Scooter Funes Primary Care Provider: Cipriano Barrera MD Diagnoses at Discharge Discharge Diagnosis (1) Benign positional vertigo: Status: Acute Qualifiers: Laterality: left Qualified Code(s): H81.12 - Benign paroxysmal vertigo, left ear Reason for Visit Reason for Visit: Reason For Visit: Chest pain Hospital Course Hospital Course: 73-year-old gentleman with history of HTN, hypothyroidism who was admitted due to severe persistent vertigo which started earlier that morning after getting up from bed. He was also noted to have some weakness in his upper extremities. Concern for possible affect on posterior circulation leading to posterior stroke he was assessed by CT of the head and CTA, which showed preserved circulation, no sign of CVA. 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 His sensory exam was intact. He was afraid to change positions so as not to trigger severe vertigo again. Due to severity of his symptoms he was initially started on steroid treatment. He was assessed by neurology. He is started on lipid profile due to his cardiovascular risk profile, his A1c was normal. His symptoms improved significantly and fairly quickly, by the next morning vertigo was resolved. He had no further weakness. Concern for CVA as the cause of this vertigo was deemed low. With very rapid resolution vestibular neuritis was thought to be less likely as well and steroids were stopped. He is prescribed meclizine as needed for symptoms. Consider referral to ENT for assessment of chronic tinnitus. Should he become symptomatic with recurrence of positional vertigo was instructed to either contact neurology office or in the case may benefit from referral to physical therapy for Emilee maneuver. Physical Exam Const: COMMON NORMALS: no apparent distress, oriented x3 and alert HENMT: COMMON NORMALS: oropharynx normal Neck/C-Spine: COMMON NORMALS: no JVD Resp: COMMON NORMALS: normal respiratory effort and clear to auscultation bilaterally AUSCULTATION: clear to auscultation bilaterally Cardio: COMMON NORMALS: no JVD, regular rhythm, S1 normal heart sound, S2 normal heart sound and no murmurs RHYTHM: regular rhythm HEART SOUNDS: S1 normal and S2 normal GI: COMMON NORMALS: normal to inspection, nondistended, normoactive bowel sounds, soft to palpation and non-tender PALPATION: Yes soft Extremity: COMMON NORMALS: no joint enlargement and no pedal edema Neuro: COMMON NORMALS: oriented x3 SENSORIUM/ORIENTATION: Yes alert COORDINATION/BALANCE: wriqxf-oc-ffso test normal and kldo-ft-hbix test normal SPEECH: speech normal GAIT: Yes unable to assess gait SENSORY EXAM: No sensory level loss detected MOTOR EXAM: no pronator drift and strength abnormal (3/5 bilateral upper extremities) COORDINATION: xzofyy-nc-ywoj test normal and nwmt-uz-xzrg test normal OTHER: No issues with tracking. Visual madera full to Confrontation. He is keenly alert and following commands well. Skin: COMMON NORMALS: no rashes or lesions noted GENERAL SKIN EXAM: no rashes or lesions noted Discharge Data Data Completed and Pending: Completed Studies During Hospitalization Category Date Time Status CT angio headneck * [id number] Stat Cat Scan 07/03/19 12:[address] head wo con* 7 0450 Stat Cat Scan 07/03/19 12:22 Completed XR chest 1V theron ble [id number] Stat Exams 07/03/19 09:13 Completed Labs from last 24 hours 07/04/19 07/04/19 04:30 04:30 WBC 4.3 RBC 3.95 L Hgb 13.7 Hct 40.9 L MCV 103.5 H D MCH 34.7 H MCHC 33.5 RDW 13.1 Plt Count 174 MPV 10.1 Neut % (Auto) 89.9 Lymph % (Auto) 8.5 [place] % (Auto) 1.4 Eos % (Auto) 0.0 Baso % (Auto) 0.0 Neut # (Auto) 3.9 Lymph # (Auto) 0.4 L [place] # (Auto) 0.1 L Eos # (Auto) 0.0 Baso # (Auto) 0.0 Nucleated RBC % (a uto) 0 Nucleated RBCs # 0.0 Sodium 137 Potassium 4.4 Chloride 108 H Carbon Dioxide 20 L Anion Gap 13.4 BUN 18 Creatinine 0.9 Glucose 151 H Calculated Osmolal ity 283 L Calcium 8.5 Vitals: Last Vital Signs Temp 97.8 F 07/04/19 15:25 Pulse 62 07/04/19 15:25 Resp 16 07/04/19 15:25 BP 124/72 07/04/19 15:25 Pulse Ox 96 07/04/19 15:25 Discharge Plan Discharge Patient Disposition: Home, Self-Care Condition: Stable Prescriptions: New meclizine 25 mg tablet 12.5 mg PO BID PRN (Reason: dizziness) Qty: 28 RF: 0 atorvastatin 20 mg tablet 20 mg PO QPM Qty: 30 RF: 0 Continued levothyroxine 50 mcg Tablet 50 mcg PO DAILY RF: 0 Aspir-81 81 mg Tablet,Delayed Release (Dr/Ec) 81 mg PO DAILY RF: 0 Aleve 220 mg Tablet 440 mg PO DAILY PRN (Reason: Pain) RF: 0 Discharge Orders: Discharge Order (Routine); Ordered 07/04/19 Ordered By: Scooter Funes Referrals: Melissa Lowery MD [Physician] - 07/17/19 2:30 pm (As needed) Cipriano Barrera MD [Primary Care Provider] - 4-7 days (PLEASE CALL FOR APPOINTMENT WITH DR BARRERA) Discharge Diet: Cardiac Discharge Activity: Increase activity as tolerated Patient Instructions: Benign Positional Vertigo, Meclizine (By mouth), Atorvastatin (By mouth), Vertigo (DC) Activity Restrictions/Additional Instructions: Avoid work overhead, or places where repositioning her head may trigger vertigo until symptoms are consistently resolved. Avoid working in elevated locations to avoid risk of falling in case you suffer an episode of vertigo. Discharge Date/Time: 07/04/19 15:26 Discharge Attestations Time Spent in Discharge Care*: greater than 30 min Quality Metrics Clinical Quality Measures During this hospital stay, did patient experience: None Coding Level of Care Code Acute Neon Glass Blower for Chg Fwd Diagnoses Benign positional vertigo H81.12 Laterality: left
== END 2019-07-04 15:26 | disposition home or self-care (01) ==
LOC: ER 09:15 → MEDSURG 13:24
PROVIDERS: Admitting Provider Internal Medicine; Emergency Provider Family Medicine; Family Provider Family Medicine; PCP Internal Medicine; Visit Provider Internal Medicine
DX: H81.12 Benign paroxysmal vertigo, left ear (principal); Z87.891 Personal history of nicotine dependence; R29.898 Other symptoms and signs involving the musculoskeletal system; I10 Essential (primary) hypertension; E03.9 Hypothyroidism, unspecified
CPT/HCPCS: 12345; 36415; 70450; 70496; 70498; 71045; 80048; 80053; 80061; 81003; 83036; 83690; 84484; 85025; 85651; 86140; 87804; 93005; 96361; 96372; 96374; 96375; 97161; 99284; 99285; A9270; G0378; J1644; J2405; J2765; J7030; J7512; Q9967

== ENCOUNTER 2021-05-03 05:38 | Emergency (ER) | payer MEDICARE, SELFPAY ==
[2021-05-03 05:49] VITALS: BP 125/80; PULSE 70; RESP 18; TEMP 36.4; O2SAT 97; BMI 22.1
--- NOTE | 2021-05-03 06:10 | XRR_ITS ---
PROCEDURE INFORMATION: Exam: XR Chest Exam date and time: 05/03/2021 6:10 AM Age: 75 years old Clinical indication: Patient HX: Coughing x 2 days; Additional info: Dyspnea/cough TECHNIQUE: Imaging protocol: XR of the chest. Views: 1 view. COMPARISON: CR XR chest 1V portable [id number] 07/03/2019 9:30 AM FINDINGS: Lungs: Unremarkable. No consolidation. Pleural spaces: Unremarkable. No pleural effusion. No pneumothorax. Heart/Mediastinum: Stable cardiomediastinal silhouette. Bones/joints: Degenerative changes of the spine seen. XR/XR chest 1V portable [id number] IMPRESSION: No evidence of active cardiopulmonary disease.
--- NOTE | 2021-05-03 06:20 | W.ED.GENADLT ---
HPI - General Adult General: Chief complaint: General Medical Stated complaint: Covid Symptoms Time Seen by Provider: 05/03/21 05:55 History of Present Illness: HPI narrative: 75-year-old male presents emergency room complaining of cough congestion watery eyes. He denies any chest pain or shortness of breath cough is minimally productive of mostly clear sputum. He has had some myalgias as well is not had any diarrhea. Patient is concerned he is COVID he has previously been vaccinated including a booster. He had previously been diagnosed with COVID his is also had similar symptoms. Onset (ago): day(s) (2-3) Location: head and chest Severity: mild Quality: aching Relieving factors: none Exacerbating factors: none Associated symptoms: Reports cough, decreased appetite, fevers/chills, headache(s) and malaise; Deny chest pain, confusion, diaphoresis, dyspnea, nausea, rash, palpitations, seizures, short of breath, syncope, vomiting or weakness Treatments prior to arrival: none Review of Systems Const: Reports: malaise; Denies: diaphoresis ENMT: Denies: throat pain, ear or mastoid pain, nasal discharge or nasal congestion Card: Denies: chest pain, palpitations or syncope Resp: Denies: dyspnea GI: Denies: nausea or vomiting : Denies: flank pain, dysuria, urinary frequency or urinary urgency Skin/Breast: Denies: rash Neuro: Reports: headache(s); Denies: confusion PFS ED PFSH: Medical History Hand numbness Hypertension Hypothyroidism Surgical History H/O inguinal hernia repair H/O shoulder surgery History of appendectomy History of cholecystectomy Family History Unknown Old age Reports many family members of old age. 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 Physical Exam Const: COMMON NORMALS: no acute distress GENERAL APPEARANCE: cooperative and comfortable ORIENTATION/CONSCIOUSNESS: Yes awake, Yes oriented to person, Yes oriented to place and Yes oriented to time HENMT: COMMON NORMALS: normocephalic, atraumatic and hearing grossly normal bilaterally HEAD & SCALP: normocephalic and atraumatic Neck/C-Spine: COMMON NORMALS: full ROM, no lymphadenopathy, supple and no JVD Resp: COMMON NORMALS: normal respiratory effort, No retractions, No use of accessory muscles and clear to auscultation bilaterally AUSCULTATION: clear to auscultation bilaterally Cardio: COMMON NORMALS: no JVD, regular rate, regular rhythm and No murmurs present (Cardio) RATE: regular rate RHYTHM: regular rhythm GI: COMMON NORMALS: Soft to palpation and No hepatosplenomegaly present AUSCULTATION: Yes normoactive bowel sounds PALPATION: Yes Soft to palpation, No Tenderness to palpation present (GI), No Guarding due to palpation present (GI) and Yes No hepatosplenomegaly present Extremity: COMMON NORMALS: normal to inspection, capillary refill normal, no clubbing, cyanosis or edema, no calf tenderness and no pedal edema Neuro: SENSORIUM/ORIENTATION: Yes oriented to person, Yes oriented to place and Yes oriented to time Skin: COMMON NORMALS: no rashes or lesions noted GENERAL SKIN EXAM: no rashes or lesions noted Course Vital Signs: Vital signs: Vital Signs Temperature 97.6 F 05/03/21 05:49 Pulse Rate 88 05/03/21 06:32 Respiratory Rate 20 H 05/03/21 06:32 Blood Pressure 120/74 05/03/21 06:32 Pulse Oximetry 97 05/03/21 06:32 MDM - General Adult MDM Narrative: Medical decision making narrative: Vital signs stable oxygen sats are good exam is unremarkable. We will screen for Covid PCR chest x-ray done is also unremarkable. Recommend self quarantine until results are back patient is interested monoclonal antibodies if he does have a positive COVID. Discharge Plan Discharge Patient Disposition: Home Clinical Impression: Clinical diagnosis of COVID-19 Condition: Stable Prescriptions: No Action levothyroxine 50 mcg Tablet 50 mcg PO DAILY RF: 0 Aspir-81 81 mg Tablet,Delayed Release (Dr/Ec) 81 mg PO DAILY RF: 0 Aleve 220 mg Tablet 440 mg PO DAILY PRN (Reason: Pain) RF: 0 Discharge Orders: Discharge ED (Routine); Ordered 05/03/21 Ordered By: Alen Salazar Referrals: Balbina Barnes NP [Primary Care Provider] - Discharge Diet: Usual diet Discharge Activity: Increase activity as tolerated Patient Instructions: Opioid Safety Activity Restrictions/Additional Instructions: Recommend you maintain self quarantine until results are available. If you have any worsening symptoms return to the emergency room. Coding Level of Care Code ED Booster Station Operator for Дмитрий Gleason
[2021-05-03 06:32] VITALS: BP 120/74; PULSE 88; RESP 20; O2SAT 97
[2021-05-03 14:15] LABS: Coronavirus Test Green County Not Detected
--- NOTE | 2021-05-04 16:09 | PC.NURSE ---
Attempted to notify patient of negative COVID-19 test result, will attempt to contact at a later time
--- NOTE | 2021-05-04 17:32 | PC.NURSE ---
Patient notified of negative COVID-19 test result
== END 2021-05-03 06:32 | disposition home or self-care (01) ==
PROVIDERS: Emergency Provider Family Medicine; PCP Nurse Practitioner Family
DX: U07.1 COVID-19 (principal); Z79.82 Long term (current) use of aspirin; I10 Essential (primary) hypertension; Z87.891 Personal history of nicotine dependence
CPT/HCPCS: 71045; 87635; 99282

== ENCOUNTER → 2021-09-07 12:49 | Outpatient (BNVA) | payer MEDICARE, SELFPAY | PROVIDERS: PCP Nurse Practitioner Family; Referring Provider Nurse Practitioner Family; Visit Provider Podiatrist Foot & Ankle Surgery | DX: M76.821 Posterior tibial tendinitis, right leg (principal); M76.822 Posterior tibial tendinitis, left leg; M21.611 Bunion of right foot; M21.612 Bunion of left foot; M20.41 Other hammer toe(s) (acquired), right foot; M20.42 Other hammer toe(s) (acquired), left foot; S82.52XA Displaced fracture of medial malleolus of left tibia, initial encounter for closed fracture; Z87.891 Personal history of nicotine dependence; X58.XXXA Exposure to other specified factors, initial encounter; S82.52XD Displaced fracture of medial malleolus of left tibia, subsequent encounter for closed fracture with routine healing; X58.XXXD Exposure to other specified factors, subsequent encounter | CPT/HCPCS: 73610; 73630; 97760; 99204; L1902 ==

== ENCOUNTER 2021-09-07 14:44 | Outpatient (CLI) | payer MEDICARE, SELFPAY | END 2021-09-07 14:45 | disposition home or self-care (01) | LOC: SPT 14:45 | PROVIDERS: PCP Nurse Practitioner Family; Visit Provider Podiatrist Foot & Ankle Surgery | DX: S82.52XD Displaced fracture of medial malleolus of left tibia, subsequent encounter for closed fracture with routine healing (principal); X58.XXXD Exposure to other specified factors, subsequent encounter | CPT/HCPCS: 97760; L1902 ==

== ENCOUNTER → 2021-10-12 08:00 | Outpatient (BNVA) | payer MEDICARE, SELFPAY | PROVIDERS: PCP Nurse Practitioner Family; Visit Provider Podiatrist Foot & Ankle Surgery | DX: M76.821 Posterior tibial tendinitis, right leg (principal); M76.822 Posterior tibial tendinitis, left leg; S82.52XD Displaced fracture of medial malleolus of left tibia, subsequent encounter for closed fracture with routine healing; X58.XXXD Exposure to other specified factors, subsequent encounter; L60.3 Nail dystrophy; M25.572 Pain in left ankle and joints of left foot; M21.611 Bunion of right foot; M21.612 Bunion of left foot; M20.41 Other hammer toe(s) (acquired), right foot; M20.42 Other hammer toe(s) (acquired), left foot; M79.671 Pain in right foot; M79.672 Pain in left foot | CPT/HCPCS: 73630; 99214 ==

== ENCOUNTER → 2021-11-03 08:37 | Outpatient (BNVA) | payer MEDICARE, SELFPAY | PROVIDERS: PCP Nurse Practitioner Family; Visit Provider Podiatrist Foot & Ankle Surgery | DX: M76.821 Posterior tibial tendinitis, right leg (principal); M76.822 Posterior tibial tendinitis, left leg; S82.52XA Displaced fracture of medial malleolus of left tibia, initial encounter for closed fracture; L60.3 Nail dystrophy; M21.611 Bunion of right foot; M21.612 Bunion of left foot; M20.41 Other hammer toe(s) (acquired), right foot; M20.42 Other hammer toe(s) (acquired), left foot; X58.XXXA Exposure to other specified factors, initial encounter | CPT/HCPCS: 99213 ==

== ENCOUNTER → 2021-12-01 10:11 | Outpatient (BNVA) | payer MEDICARE, SELFPAY | PROVIDERS: PCP Nurse Practitioner Family; Visit Provider Podiatrist Foot & Ankle Surgery | DX: M76.821 Posterior tibial tendinitis, right leg (principal); M76.822 Posterior tibial tendinitis, left leg; S82.52XA Displaced fracture of medial malleolus of left tibia, initial encounter for closed fracture; L60.3 Nail dystrophy; M21.611 Bunion of right foot; M21.612 Bunion of left foot; M20.41 Other hammer toe(s) (acquired), right foot; M20.42 Other hammer toe(s) (acquired), left foot; X58.XXXA Exposure to other specified factors, initial encounter | CPT/HCPCS: 99214 ==

== ENCOUNTER → 2022-03-06 08:05 | Outpatient (BNVA) | payer MEDICARE, SELFPAY | PROVIDERS: PCP Nurse Practitioner Family; Visit Provider Podiatrist Foot & Ankle Surgery | DX: M76.821 Posterior tibial tendinitis, right leg (principal); M76.822 Posterior tibial tendinitis, left leg; S82.52XA Displaced fracture of medial malleolus of left tibia, initial encounter for closed fracture; L60.3 Nail dystrophy; M21.611 Bunion of right foot; M21.612 Bunion of left foot; M20.41 Other hammer toe(s) (acquired), right foot; M20.42 Other hammer toe(s) (acquired), left foot; X58.XXXA Exposure to other specified factors, initial encounter | CPT/HCPCS: 99213 ==

== ENCOUNTER → 2022-08-24 15:43 | Outpatient (BNVA) | payer MEDICARE, SELFPAY | PROVIDERS: PCP Family Medicine; Visit Provider Family Medicine | DX: R30.0 Dysuria (principal) | CPT/HCPCS: 81003 ==

== ENCOUNTER → 2022-09-12 08:24 | Outpatient (BNVA) | payer MEDICARE, SELFPAY | PROVIDERS: PCP Family Medicine; Visit Provider Family Medicine | DX: R30.0 Dysuria (principal) | CPT/HCPCS: 87086 ==

== ENCOUNTER → 2022-12-05 09:59 | Outpatient (BNVA) | payer MEDICARE, SELFPAY | PROVIDERS: PCP Family Medicine; Visit Provider Podiatrist Foot & Ankle Surgery | DX: M76.821 Posterior tibial tendinitis, right leg (principal); M76.822 Posterior tibial tendinitis, left leg; L60.3 Nail dystrophy; M21.611 Bunion of right foot; M21.612 Bunion of left foot; M20.41 Other hammer toe(s) (acquired), right foot; M20.42 Other hammer toe(s) (acquired), left foot | CPT/HCPCS: 99214 ==

== ENCOUNTER → 2022-12-11 15:11 | Outpatient (BNVA) | payer MEDICARE, SELFPAY | PROVIDERS: PCP Family Medicine; Visit Provider Family Medicine | DX: R53.83 Other fatigue (principal); R25.1 Tremor, unspecified; E03.9 Hypothyroidism, unspecified; I10 Essential (primary) hypertension | CPT/HCPCS: 80053; 82306; 82607; 83880; 84443; 85025; 86140 ==

== ENCOUNTER → 2023-04-10 13:50 | Outpatient (BNVA) | payer MEDICARE, SELFPAY | PROVIDERS: PCP Family Medicine; Visit Provider Family Medicine | DX: M54.2 Cervicalgia (principal) | CPT/HCPCS: 85651 ==

== ENCOUNTER → 2023-07-31 07:43 | Outpatient (BNVA) | payer MEDICARE, SELFPAY | PROVIDERS: PCP Family Medicine; Referring Provider Family Medicine; Visit Provider Specialist | DX: G20.A1 Parkinson's disease without dyskinesia, without mention of fluctuations (principal) | CPT/HCPCS: 99205 ==

== ENCOUNTER → 2023-08-28 11:36 | Outpatient (BNVA) | payer MEDICARE, SELFPAY | PROVIDERS: PCP Family Medicine; Visit Provider Specialist | DX: G20.A1 Parkinson's disease without dyskinesia, without mention of fluctuations (principal) | CPT/HCPCS: 99214 ==

== ENCOUNTER → 2023-12-26 14:34 | Outpatient (BNVA) | payer MEDICARE, SELFPAY | PROVIDERS: PCP Family Medicine; Visit Provider Specialist | DX: G20.A1 Parkinson's disease without dyskinesia, without mention of fluctuations; H53.8 Other visual disturbances; R20.0 Anesthesia of skin; G44.221 Chronic tension-type headache, intractable | CPT/HCPCS: 99214 ==

== ENCOUNTER → 2024-02-19 15:31 | Outpatient (BNVA) | payer MEDICARE, SELFPAY | PROVIDERS: PCP Family Medicine; Visit Provider Family Medicine | DX: I10 Essential (primary) hypertension (principal); E03.9 Hypothyroidism, unspecified; R53.83 Other fatigue; R30.0 Dysuria; E11.9 Type 2 diabetes mellitus without complications; G45.9 Transient cerebral ischemic attack, unspecified | CPT/HCPCS: 80053; 80061; 84153; 84443; 85025 ==

== ENCOUNTER → 2024-06-25 11:05 | Outpatient (BNVA) | payer MEDICARE, SELFPAY | PROVIDERS: PCP Family Medicine; Visit Provider Specialist | DX: G20.A1 Parkinson's disease without dyskinesia, without mention of fluctuations (principal); R20.0 Anesthesia of skin; G44.221 Chronic tension-type headache, intractable; H53.8 Other visual disturbances | CPT/HCPCS: 99214 ==

== ENCOUNTER → 2024-08-26 13:34 | Outpatient (BNVA) | payer MEDICARE, SELFPAY | PROVIDERS: PCP Family Medicine; Visit Provider Family Medicine | DX: R53.83 Other fatigue (principal); I10 Essential (primary) hypertension; E03.9 Hypothyroidism, unspecified; G20.A1 Parkinson's disease without dyskinesia, without mention of fluctuations; G45.9 Transient cerebral ischemic attack, unspecified; R06.00 Dyspnea, unspecified; R35.1 Nocturia | CPT/HCPCS: 80053; 80061; 82306; 82607; 83880; 84153; 84443; 85025; 86140 ==